=== PATIENT | male | born 1980 | race Caucasian/White ===

== ENCOUNTER 2020-02-01 18:52 | Emergency (ER) | payer OTHER ==
[~2020-02-01] VITALS: Ht 175.3 cm; Wt 90.7 kg
[~2020-02-01 18:52] MED LIST: BACO TOP; BACTRIM DS1 TAB PO; CLINDAMYCIN HC300 MG PO; HIB480 TP; LAC PO
[2020-02-01 19:30] VITALS: Ht 175.3 cm; Wt 90.7 kg
[2020-02-01 21:32] VITALS: BP 121/80
== END 2020-02-01 21:32 | disposition home or self-care (01) ==
LOC: ED 18:52
DX: L03.116 Cellulitis of left lower limb (principal); L03.115 Cellulitis of right lower limb; Z20.828 Contact with and (suspected) exposure to other viral communicable diseases
CPT/HCPCS: U0003-CS

== ENCOUNTER 2020-03-05 11:20 | Emergency (ER) | payer OTHER, SELFPAY ==
[~2020-03-05] VITALS: Ht 175.3 cm; Wt 90.7 kg
[2020-03-05 11:22] VITALS: Ht 175.3 cm; Wt 90.7 kg
[2020-03-05 13:48] VITALS: BP 1118/68
== END 2020-03-05 13:48 | disposition home or self-care (01) ==
LOC: ED 11:20
DX: U07.1 COVID-19 (principal); J40 Bronchitis, not specified as acute or chronic
CPT/HCPCS: Q0092; U0003-CS

== ENCOUNTER 2020-08-02 11:29 | Emergency (ER) | payer OTHER ==
[~2020-08-02] VITALS: Ht 175.3 cm; Wt 83.0 kg
[2020-08-02 11:35] VITALS: Ht 175.3 cm; Wt 83.0 kg
[2020-08-02 13:00] LABS: UA SPECIFIC GRAVITY <=1.005 (1.005-1.035); microscopic required? YES; urine erythrocyte TRACE (NEGATIVE)
[2020-08-02 13:11] LABS: AMPHETAMINE QUAL UR NONE DETECTED (See below)
[2020-08-02 13:18] LABS: BASOPHIL % 0.5 % (0.2-1.5); PLATELET COUNT 252 x10^3mcL (152-348); RED CELL DISTRIBUTION WIDTH 13.2 % (12.1-16.2)
[2020-08-02 13:22] LABS: CALCIUM 9.1 mg/dL (8.5-10.1); CARBON DIOXIDE 29.7 mmol/L (21-32); CHLORIDE SERUM 99 mmol/L (98-107); GFR1 > 60 mL/min; GLUCOSE SERUM 92 mg/dL (74-106); SODIUM SERUM 135 mmol/L (136-145)
[2020-08-02 13:26] LABS: ALKALINE PHOSPHATASE 70 U/L (46-116); ALT/SGPT 19 U/L (16-63); AST/SGOT 10 U/L (15-37); BILIRUBIN TOTAL 0.2 mg/dL (0.20-1.00); CHOLESTEROL 180 mg/dL (<200); CHOLESTEROL/HDL RATIO 4.1; HDL CHOLESTEROL 44 mg/dL (40-60); TOTAL PROTEIN, SERUM 7.1 g/dL (6.4-8.2); TRIGLYCERIDES 80 mg/dL (<150)
[2020-08-02] MEDS ORDERED: MOT600 PO (15:03)
[2020-08-02 15:17] VITALS: BP 120/65
== END 2020-08-02 15:17 | disposition home or self-care (01) ==
LOC: ED 11:29
PROVIDERS: Specialist
DX: R10.32 Left lower quadrant pain (principal); J45.909 Unspecified asthma, uncomplicated
CPT/HCPCS: G0480; J1885; J7030